=== PATIENT | female | born 1990 | race Caucasian/White ===

== ENCOUNTER 2017-10-27 20:29 | Emergency (ER) | payer SELFPAY ==
[~2017-10-27] VITALS: Ht 165.1 cm; Wt 49.9 kg
[2017-10-27 23:09] VITALS: BP 106/64
[2017-10-27] MEDS ORDERED: TRIAMCINOLONE 40MG/ML 1ML VIAL IM ONE (23:45)
== END 2017-10-28 00:10 | disposition home or self-care (01) ==
LOC: ER 20:29
DX: J40 Bronchitis, not specified as acute or chronic (principal)
CPT/HCPCS: 71045; 81025